=== PATIENT | male | born 1990 | race African-American/Black ===

== ENCOUNTER 2018-09-08 00:34 | Emergency (ER) | payer BC, MEDICAID ==
[~2018-09-08] VITALS: Ht 180.3 cm; Wt 77.1 kg
[~2018-09-08 00:34] MED LIST: NKM
--- NOTE | 2018-09-08 00:53 | NUR ---
ED Nurse Note: Pt arrived ED from home. C/o right chest pain today possible due to coughing. Pt is A/O X 4. Vital signs stable at this time. Dr. Hadley at bed side, waiting for orders.
[2018-09-08 00:57] VITALS: BP 117/70
[2018-09-08] MEDS ORDERED: ALBUTEROL SULF8.5 GM INH (01:07)
[2018-09-08] MEDS ORDERED: IBUPROFEN600 MG ORAL (01:07)
[2018-09-08] MEDS ORDERED: PROMETHAZINE-D118 ML ORAL (01:07)
[2018-09-08 01:20] VITALS: BP 115/72
--- NOTE | 2018-09-08 01:20 | NUR ---
ED Nurse Note: Pt has seen by Dr. Hadley, all orders carried out, d/c instruction and prescription given. ID band removed. Pt d/c from ED with steady gait and all his belongings.
--- NOTE | 2018-09-08 01:20 | NUR ---
Note beau in EDM - 09/08/18 at 0143 by OR[facility] ED Nurse Note: Pt arrived ED from home. C/o right chest pain today possible due to coughing. Pt is A/O X 4. Vital signs stable at this time. Dr. Hadley at bed side, waiting for orders.
[2018-09-08] MEDS ORDERED: Insulin Human Regular 100units/ml 3ml ONE (03:41)
--- NOTE | 2018-09-08 06:10 | Emergency Room Report ---
History of Present Illness General Chief Complaint: Chest Pain Source: Patient Present Illness HPI 28 year old male presents ED for evaluation. Patient complaining of cough 3 days with chest wall pain. Pain is dull, 7 out of 10, nonradiating. Worse with coughing. States cough is productive with whitish phlegm. Denies asthma. Admits to smoking. Denies fevers or chills. Denies sick contacts or recent travel. No other aggravating relieving factors. Denies any other associated symptoms Allergies: Coded Allergies: No Known Allergies (Unverified , 03/24/13) Patient History Past Medical History: none Past Surgical History: none Pertinent Family History: none Social History: Denies: smoking, alcohol use, drug use Immunizations: UTD Reviewed Nursing Documentation: PMH: Agreed; PSxH: Agreed Nursing Documentation-PMH Past Medical History: No Stated History Review of Systems All Other Systems: negative except mentioned in HPI Physical Exam Vital Signs Date Time Temp Pulse Resp B/P (MAP) Pulse Ox O2 Delivery O2 Flow Rate FiO2 09/08/18 00:42 98.2 83 18 116/71 98 Room Air Sp02 EP Interpretation: reviewed, normal General Appearance: no apparent distress, alert, GCS 15, non-toxic Head: normocephalic, atraumatic Eyes: bilateral eye normal inspection, bilateral eye PERRL ENT: hearing grossly normal, normal pharynx, no angioedema, normal voice Neck: full range of motion, supple/symm/no masses Respiratory: lungs clear, normal breath sounds, speaking full sentences, other - reproducible L anterior chest wall pain Cardiovascular #1: regular rate, rhythm, no edema Cardiovascular #2: 2+ carotid (R), 2+ carotid (L), 2+ radial (R), 2+ radial (L) , 2+ dorsalis pedis (R), 2+ dorsalis pedis (L) Gastrointestinal: normal bowel sounds, non tender, soft, non-distended, no guarding, no rebound Rectal: deferred Genitourinary: normal inspection, no CVA tenderness Musculoskeletal: back normal, gait/station normal, normal range of motion, non- tender Neurologic: alert, oriented x3, responsive, motor strength/tone normal, sensory intact, speech normal Psychiatric: judgement/insight normal, memory normal, mood/affect normal, no suicidal/homicidal ideation Reflexes: 3+ bicep (R), 3+ bicep (L), 3+ tricep (R), 3+ tricep (L), 3+ knee (R) , 3+ knee (L) Skin: normal color, no rash, warm/dry, well hydrated Lymphatic: no adenopathy Medical Decision Making Diagnostic Impression: Primary Impression: Bronchitis Additional Impression: Chest wall pain ER Course Hospital Course 28 yo M presents c/o cough, chest wall pain with cough Differential diagnoses include: URI, pharyngitis, otitis media, asthma Clinical course Patient placed on stretcher. After initial history, physical exam reveals a young male in no acute distress. Bilateral TM unremarkable. No pharyngeal erythema. No tonsillar exudates. No lymphadenopathy. lungs clear. Reproducible left-sided rib pain. abdomen soft. Clinical findings consistent with bronchitis. We'll discharge with cough medication, inhaler, pain medications. Recommend smoking cessation Safe for discharge or close outpatient follow-up. We'll provide PMD referrals Diagnosis - bronchitis, chest wall pain Stable and discharged home with Rx albuterol, prednisone, motrin. Instructed to followup with PMD. Return to ED if symptoms recur or worsen Last Vital Signs Date Time Temp Pulse Resp B/P (MAP) Pulse Ox O2 Delivery O2 Flow Rate FiO2 09/08/18 01:20 98.2 82 18 115/72 98 Room Air Status: improved Disposition: HOME, SELF-CARE Condition: Stable Scripts Ibuprofen* (MOTRIN*) 600 Mg Tablet 600 MG ORAL Q8H PRN for For Pain, #30 TAB 0 Refills Prov: Jason Hadley MD 09/08/18 Albuterol Sulfate* (ALBUTEROL SULFATE MDI*) 8.5 Gm Hfa.aer.ad 2 PUFF INH Q6H, #1 EA 0 Refills Prov: Jason Hadley MD 09/08/18 D-Methorphan Hb/Prometh Hcl* (PROMETHAZINE-DM SYRUP*) 118 Ml Syrup 5 ML ORAL Q4H PRN for For Cough, #118 ML 0 Refills Prov: Jason Hadley MD 09/08/18 Referrals: [facility],REFERRING (PCP) [facility]ly [facility] Patient Instructions: Acute Bronchitis, [id number] Jason Hadley MD Sep 08, 2018 06:10
== END 2018-09-08 01:20 | disposition home or self-care (01) ==
LOC: EMR 01:12
DX: J40 Bronchitis, not specified as acute or chronic (principal); R07.89 Other chest pain
CPT/HCPCS: 99282